=== PATIENT | female | born 1960 | race Caucasian/White ===

== ENCOUNTER 2019-03-31 18:31 | Emergency (ER) | payer BC ==
[~2019-03-31] VITALS: Ht 177.8 cm; Wt 90.7 kg
[~2019-03-31 18:31] MED LIST: BUDE10.2 INH; CALC-1026 PO; CHOL10002 PO; FEXO180T94 PO; FOLI1TAB2 PO; LEVO88TA5 PO; MONT10TA22 PO; TIOT18CA3 IH
--- NOTE | 2019-03-31 18:35 | NUR ---
BROOKS FROM URGENT CARE, SOB NHAN 80'S ON RA PER REPORT. ALBUTEROL 10MG GIVEN BY EMS EN ROUTE, O2 SAT AFTER AT 96%. TO ER BED 8, PATIENT NOTED TRIPODDING, HOOKED TO SIZE WORKER AND POX, PATIENT NOTED TACHYPNEIC, CHANGED TO HOSP GOWN, WARM BLANKET PROVIDED, HOB KEPT ELEVATED, DR DUNCAN AT BEDSIDE
[2019-03-31] MEDS ORDERED: Magnesium 1GM/D5W 100ML PREMIX 200 ML IV ONE ×2 (18:36→18:53)
[2019-03-31] MEDS ORDERED: methylPREDNISolone SOD SUCC 125 MG/2ML VIAL ONE (18:53)
[2019-03-31 18:55] LABS: BASOPHILS # (AUTO) 0.1 /CMM (0.0-0.2); BASOPHILS % (AUTO) 0.9 % (0.0-2.0); EOSINOPHILS % (AUTO) 10.4 % (0.0-6.0); HEMATOCRIT 45 % (33-45); HEMOGLOBIN 15.3 g/dL (11.5-14.8); LYMPHOCYTES # (AUTO) 3.1 /CMM (0.8-4.8); LYMPHOCYTES % (AUTO) 29.4 % (20.0-44.0); MEAN CORPUSCULAR HGB CONC 34 g/dl (31.0-36.0); MEAN CORPUSCULAR VOLUME 88 fL (82-100); MONOCYTES # (AUTO) 0.7 /CMM (0.1-1.30); MONOCYTES % (AUTO) 6.4 % (2.0-12.0); NEUTROPHILS # (AUTO) 5.6 /CMM (1.8-8.9); NEUTROPHILS % (AUTO) 52.9 % (43.0-81.0); PLATELET COUNT (AUTO) 286 /CMM (150-450); RED BLOOD CELL COUNT(AUTO) 5.14 MIL/uL (4.0-5.2); WHITE BLOOD COUNT (AUTO) 10.7 K/uL (4.3-11.0)
[2019-03-31] MEDS ORDERED: IV NS 0.9% 1,000 ML BAG IV ONE (19:00)
[2019-03-31] MEDS ORDERED: methylPREDNISolone SOD SUCC 125 MG/2ML VIAL IV ONE (19:00)
[2019-03-31 19:07] LABS: CALCIUM, SERUM 9.7 mg/dL (8.5-10.1); CREATININE 0.8 mg/dL (0.6-1.3); POTASSIUM 4.1 mmol/L (3.5-5.1)
--- NOTE | 2019-03-31 19:30 | NUR ---
REPORT GIVEN TO CAMILO BETANCOURT FOR SHENA
--- NOTE | 2019-03-31 19:31 | NUR ---
PT RECEIVED FROM ASIA RUBIO FOR SHENA
--- NOTE | 2019-03-31 21:09 | NUR ---
Patient discharged to home in stable condition. Written and verbal after care instructions given. Patient verbalizes understanding of instruction.IV removed. Catheter intact and site benign. Pressure and 4x4 applied to site. No bleeding noted. Pt ambulatory with a steady gait
[2019-03-31 21:16] VITALS: BP 110/55
== END 2019-03-31 21:16 | disposition home or self-care (01) ==
LOC: ER 18:35
DX: J45.909 Unspecified asthma, uncomplicated (principal); Z88.6 Allergy status to analgesic agent; Z88.2 Allergy status to sulfonamides; Z79.899 Other long term (current) drug therapy
CPT/HCPCS: 36415; 71045; 80048; 85025; 87804 ×2; 93005; 96365; 96375; 99284; J2930; J3475; J7030